=== PATIENT | female | born 1965 | race Caucasian/White ===

== ENCOUNTER 2018-06-15 20:58 | Emergency (ER) | payer BC ==
--- NOTE | 2018-06-15 22:15 | EDPHY ---
General Time Seen by Provider: 06/15/18 21:31 Narrative: CHIEF COMPLAINT: Crushed finger in car door HISTORY OF PRESENT ILLNESS: Patient presents with complaints of crush to her right thumb in a car door. She states that she was exiting her vehicle this evening when the rear passenger accidentally closed her finger in the door. The door did not completely latch. This was very brief crush injury. She sustained a laceration to the thumb. It is minimally painful with movement and bending. No pain at rest. No numbness or tingling. Does not radiate. No pain in the ipsilateral wrist, hand, elbow. No pulsatile bleeding. Tetanus up-to-date less than 2 years ago. Left hand dominant TIME OF INJURY: Just prior to arrival TETANUS STATUS: Less than 2 years MEDICAL/SURGICAL/SOCIAL HISTORY: Uncomplicated. Currently visiting from [place]. Works for [employer] REVIEW OF SYSTEMS: Ten systems reviewed and are negative unless otherwise noted in the HPI EXAMINATION General Appearance: Alert, no distress Head: normocephalic, atraumatic Cardiovascular: Symmetric radial Pulses. Brisk cap refill the fingers the right hand. 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 Thumb opposition and abduction strength symmetric. Skin: Warm and dry, no rash. 2.5 cm, L-shaped laceration to the right thumb over the proximal phalanx extending into the distal phalanx. No pulsatile bleeding. No foreign body. No exposure of the underlying deep tissue structures. Extremities: Minimal tenderness of the right thumb laceration. There is full range of motion of the right thumb and fingers the right hand without deficit. All compartments are soft in the right upper extremity. No signs of DVT, compartment syndrome or cellulitis. DIFFERENTIAL DIAGNOSES: Including but not limited to laceration, laceration complication, laceration foreign body, laceration with deep tissue injury MDM: 9:30 p.m. Crush injury to the right thumb and car door just prior to arrival with laceration over the proximal phalanx. There is no flexor injury. No injury to the adductor, abductors or interossei. No foreign body. No pulsatile bleeding. No injury to the nail aside from superficial hematoma. I have ordered x-ray to rule out fracture. I have administered a digital block. Proceed with irrigation closure. 10:30 p.m. X-ray is negative for acute fracture. Laceration has been irrigated re- examined. There is no obvious deep tissue structure injury. Full range of motion of the thumb. I have close the wound with good approximation. There is a very superficial subungual hematoma over the lunula of the nail only. She has declined any trephination. There is no other injury to the nail. No injury to the nail bed. We discussed ice, elevation anti-inflammatories. We discussed wound care. She is flying home to [place] on Thursday and she will make an appoint with primary care physician to have the sutures removed between 7-10 days. I have answered all her questions. She is neuro intact distally with good signs of perfusion. Discharged home stable condition PROCEDURE: Digital Block Indication: Finger laceration Consent: Verbal Location: Right thumb Anesthesia: Lidocaine 1% plain, 0.25% Marcaine plain, 5mL Description: Base of the finger was prepped. The above was infused without difficulty. Tolerated well. Good anesthesia. Complications: None PROCEDURE: Laceration repair Consent: Verbal Location: Right thumb Length of repair: 2.5 cm Complexity: Simple Layer involvement: Single Anesthesia: Digital block Irrigation: Extensive Debridement: None Procedure description: Following good anesthesia, the wound was copiously irrigated. Wound bed was explored with a sterile glove, and there is no foreign body noted. Wound borders were approximated well with good hemostasis. Tolerated well without complication. Suture/Staple material: 5-0 Prolene, 5 simple ruptured sutures Wound care: Routine as discussed Suture/Staple removal: 10 Days SUPERVISION: This patient was independently evaluated without direct involvement of or examination by the attending physician. ED Precautions: Worsening pain. Erythema, edema, cyanosis, pallor, paresthesia or anesthesia. - Diagnostics Imaging Results: Imaging Impressions Finger X-Ray 06/15/18 21:30 Impression: Nothing acute identified. - History Smoking Status: Never smoked - Objective Vital Signs: Initial Vital Signs Temperature (C) 98.2 F 06/15/18 21:02 Heart Rate 68 06/15/18 21:02 Respiratory Rate 18 06/15/18 21:02 Blood Pressure 152/89 H 06/15/18 21:02 O2 Sat (%) 96 06/15/18 21:02 O2 Delivery Mode Room Air Allergies/Adverse Reactions: cephalexin [From Keflex] Allergy (Verified 06/15/18 21:04) Home Medications: Medication Instructions Recorded Levothyroxine 125 mcg 06/15/18 oxyCODONE HCL/ACETAMINOPHEN 1 each PO Q4-6PRN PRN #5 tablet 06/15/18 [Percocet 5-325 mg Tablet] Departure - Departure Disposition: Home, Routine, Self-Care Clinical Impression: Laceration of thumb with damage to nail Qualifiers: Encounter type: initial encounter Foreign body presence: without foreign body Laterality: right Qualified Code(s): S61.111A - Laceration without foreign body of right thumb with damage to nail, initial encounter Crushing injury of thumb, right Qualifiers: Encounter type: initial encounter Qualified Code(s): S67.01XA - Crushing injury of right thumb, initial encounter Condition: Good Instructions: Care For Your Stitches (ED), Finger Laceration (ED), Crush Injury (ED) Additional Instructions: 1. Thin layer of bacitracin once daily for the next 2 days 2. Keep the wound covered while showering for the next 3 days 3. Daily wound care as discussed 4. You will need to follow up with your primary care physician in [place] in 7-10 days for suture removal 5. Return here for signs of infection as discussed including warmth, redness, fever, drainage from the site 6. return here for increasing pain surrounding the laceration 7. Do not submerge the wound in any water, hot tub, swimming pool until sutures removed Referrals: CLEM MCGILL [Other] - As per Instructions Prescriptions: oxyCODONE HCL/ACETAMINOPHEN [Percocet 5-325 mg Tablet] 1 each PO Q4-6PRN PRN #5 tablet PRN Reason: Pain, Breakthrough
[2018-06-15 22:44] VITALS: BP 141/90
== END 2018-06-15 22:43 | disposition home or self-care (01) ==
PROC: 0HQFXZZ Repair Right Hand Skin, External Approach (ICD-10-PCS; principal; 2018-06-15)
DX: S67.01XA Crushing injury of right thumb, initial encounter (principal); S61.111A Laceration without foreign body of right thumb with damage to nail, initial encounter; V48.4XXA Person boarding or alighting a car injured in noncollision transport accident, initial encounter